=== PATIENT | male | born 1965 | race Caucasian/White ===

== ENCOUNTER → 2017-04-04 | Outpatient (CLI) | payer OTHER ==
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
== END | disposition home or self-care (01) ==
LOC: CCAT 11:05
DX: M54.9 Dorsalgia, unspecified (principal); M48.06 Spinal stenosis, lumbar region; M99.83 Other biomechanical lesions of lumbar region; M47.896 Other spondylosis, lumbar region; M51.86 Other intervertebral disc disorders, lumbar region; M46.96 Unspecified inflammatory spondylopathy, lumbar region
CPT/HCPCS: 72131